=== PATIENT | female | born 1945 | race Caucasian/White ===

== ENCOUNTER → 2018-06-23 09:12 | Outpatient (CLI) | payer MEDICARE, BC, SELFPAY ==
--- NOTE | 2018-06-22 | FLU_PTH ---
PATIENT: PRADEEP REESE LOC: [facility] U#:[id number] AGE/SX: 80/F ROOM: RE06/23/[address]: Dr. Adriana Bell MD : 1945 BED: DIS: SPEC #: [id number] RECD: 06/23/18 11:25 STATUS: MISBAH RE #: [id number] JUAN ANTONIO: 06/22/18 00:[address]: Adriana Bell DEPT: CYTOLOGY RECD BY: Jaden Shabazz ENTERED: 06/23/18 11:26 SP TYPE: Fluid OTHR DR: Dr. Jovany Bob, DO Dr. Jonny Varela MD Tissues: A - Thyroid gland, NOS B - Thyroid gland, NOS C - Thyroid gland, NOS D - Thyroid gland, NOS Procedures: Pap Stain (control) Special Stain Group II Surgery Specimen Level IV Cell Block Cytospin Fluid HEADER OPERATION: Ultrasound-guided fine needle aspiration bilateral thyroid PRE-OP DIAGNOSIS: Bilateral thyroid nodules TISSUE SUBMITTED: A ? Left thyroid FNA fluid, B ? Left thyroid FNA 8 slides, C ? Right thyroid FNA fluid, D ? Right thyroid FNA 4 slides DIAGNOSIS CYTOLOGY A. Left thyroid fluid, ultrasound-guided FNA (cytospin and cell block): Atypical follicular cells present, suspicious for papillary thyroid carcinoma. See comment. B. Left thyroid nodule, ultrasound-guided FNA (smears): Atypical follicular cells present, suspicious for papillary thyroid carcinoma. Adequate for evaluation. C. Right thyroid nodule fluid, ultrasound-guided FNA (cytospin and cell block): Rare benign follicular cells noted. D. Right thyroid nodule, ultrasound-guided FNA (smears): Rare benign follicular cells noted. The specimen is limited in evaluation due to lack of adequate number of follicular cells. SJ:tate 06/26/18 COMMENT A. Immunohistochemistry ([id number]) supports the above diagnosis. The specimen also shows macrophages consistent with focal cystic changes. Please make reference to previous specimen ([id number]), fine needle aspiration, right thyroid nodule and fine needle aspiration, left thyroid nodule, with diagnosis of cystic colloid nodule. Correlation with clinical, radiologic findings and appropriate follow up are necessary. Case has been reviewed in consultation with Dr. Machado who concurs with the above diagnosis. IDC:AM CYTOLOGY STUDY Slides are reviewed. CYTOLOGY GROSS A - Received is 60 ml of brown cloudy fluid labeled with the patient's name and and designated per the requisition as left thyroid. Submitted for cytology preparation including cell block. B - Received are eight smears labeled with the patient's name and designated per the requisition as left thyroid. Submitted for staining. C - Received is 60 ml of brown cloudy fluid labeled with the patient's name and and designated per the requisition as right thyroid. Submitted for cytology preparation including cell block. D - Received are four smears labeled with the patient's name and designated per the requisition as right thyroid. Submitted for staining. 06/23/18 TC:5 CPT: 43399 x2, 27004 x2, 09057 x2 ADDENDUM ADDENDUM ADDENDUM ADDENDUM ADDENDUM ADDENDUM ADDENDUM ADDENDUM ADDENDUM ADDENDUM ADDENDUM ADDENDUM ADDENDUM ADDENDUM ADDENDUM ADDENDUM ADDENDUM ADDENDUM 07/20/2018 13:32 ADDENDUM 07/20/2018 13:32 ADDENDUM 07/20/2018 13:32 ADDENDUM 07/20/2018 13:32 ADDENDUM 07/20/2018 13:32 This addendum is added to incorporate an outside pathology consultation report. The case was examined at [facility] (#[id number]) and the following diagnosis was rendered. A. Left thyroid, ultrasound-guided fine needle aspiration: Suspicious for papillary thyroid carcinoma. B. Left thyroid nodule, ultrasound-guided fine needle aspiration: Suspicious for papillary thyroid carcinoma. C. Right thyroid, ultrasound-guided fine needle aspiration: Nondiagnostic aspirate sample. Insufficient follicular cells for evaluation. B. Right thyroid nodule, ultrasound-guided fine needle aspiration: Nondiagnostic aspirate sample. Insufficient follicular cells for evaluation. Please see complete above mentioned consultation report in EMR
--- NOTE | 2018-06-22 | IMM_PTH ---
PATIENT: PRADEEP REESE LOC: [facility] U#:[id number] AGE/SX: 80/F ROOM: RE06/23/[address]: Dr. Adriana Bell MD : 1945 BED: DIS: SPEC #: [id number] RECD: 06/26/18 11:49 STATUS: MISBAH REQ #: [id number] JUAN ANTONIO: 06/22/18 00:[address]: Adriana Bell DEPT: IMMUNOHISTOCHEMISTRY RECD BY: Fabi Marquez ENTERED: 06/26/18 11:51 SP TYPE: IMMUNO OTHR DR: Dr. Jovany Bob, DO Tissues: A - Thyroid gland, NOS Procedures: CK19 (add) GAL-3 (add) HBME (add) CD56 (initial) PHYSICIAN & INSTITUTION [facility] [id number] SPECIMEN INFORMATION: Tissue Source: A ? Left thyroid FNA Clinical Info: Bilateral thyroid nodules Specimen Number: [id number] CPT code: 75384, 02629 x3 METHODOLOGY: Deparaffinized sections of prefer/formalin-fixed tissue or PAP/DQ stained slides are incubated with monoclonal/polyclonal antibodies/oligonucleotide probes. Localization is made via biotin free immunoperoxidase method. Appropriate controls are performed and reacted as expected. Results on target cell population are indicated in the following table: RESULTS: ANTIBODY / CLONE RESULT Block A CD56 (123C3.D5) negative HBME1 (HBME-1) positive, focal CK19 (A53-B/A2.26) positive GAL3 (9C4) positive These tests were developed and their performance characteristics determined by [facility]. They may not have been cleared or approved by the [place]. Food and Drug Administration. The FDA has determined that such clearance or approval is not necessary. INTERPRETATION: A. Left thyroid, fine needle aspiration: Atypical follicular cells present, suspicious for papillary thyroid carcinoma. MARIA TERESA:tate 06/26/18 Case has been reviewed in consultation with Dr. Machado who concurs with the above diagnosis. IDC:AM
== END ==
PROVIDERS: Family Provider Family Medicine; PCP Family Medicine; Visit Provider Surgery
DX: E04.1 Nontoxic single thyroid nodule (principal)
CPT/HCPCS: 88108; 88305; 88313; 88341; 88342

== ENCOUNTER → 2020-03-24 | Outpatient (CLI) | payer MEDICARE, BC, OTHER, SELFPAY | END | disposition home or self-care (01) | PROVIDERS: PCP Family Medicine; Referring Provider Obstetrics & Gynecology; Visit Provider Obstetrics & Gynecology | DX: R30.0 Dysuria (principal) | CPT/HCPCS: 87086; 87088; 87186 ==